=== PATIENT | female | born 1985 | race Caucasian/White ===

== ENCOUNTER 2021-07-04 19:17 | Emergency (ER) | payer OTHER ==
[~2021-07-04] VITALS: Ht 170.2 cm; Wt 73.4 kg
[2021-07-04 19:31] VITALS: BP 125/85
[2021-07-04] MEDS: ONDANSETRON PF 4 MG/2 ML VIAL. IVP ONE (19:45)
[2021-07-04] MEDS: IV NORMAL SALINE 1,000ML 1,000 ML IV ONE ×2 (19:45→22:00)
[2021-07-04] MEDS: MORPHINE SULFATE 4 MG/ML DISP.SYRIN. IV ONE (19:45)
--- NOTE | 2021-07-04 19:52 | PHYS DOC ---
Past History Past Surgical History: , Other Additional Past Surgical Histo: breast surgery, tummy tuck, R knee Alcohol Use: None Adult General Chief Complaint Chief Complaint: ABDOMINAL PAIN HPI HPI Patient is a 35-year-old female presenting to the emergency department for evaluation of abdominal pain and diarrhea and dark urine. Patient says that she has had diarrhea for the past 4 nights straight. She was on a 9-day course of steroids but finished it 2 nights ago. She says she has not been on antibiotics or foreign travel or chemotherapy. The diarrhea is watery but nonbloody. The abdominal pain is diffuse and crampy and radiates to her bilateral flanks. She denies any fevers chills nausea vomiting dysuria hematuria vaginal bleeding or vaginal discharge. She has had multiple abdominal surgeries including C- sections and a tummy tuck. She is in no acute distress with normal vital signs. Review of Systems Review of Systems Constitutional: Denies fever or chills [] Eyes: Denies change in visual acuity, redness, or eye pain [] HENT: Denies nasal congestion or sore throat [] Respiratory: Denies cough or shortness of breath [] Cardiovascular: No additional information not addressed in HPI [] GI: + abdominal pain. No nausea, vomiting, bloody stools. + diarrhea [] : Denies dysuria or hematuria [] Musculoskeletal: + back pain Integument: Denies rash or skin lesions [] Neurologic: Denies headache, focal weakness or sensory changes [] All other systems were reviewed and found to be within normal limits, except as documented in this note. Current Medications Current Medications Current Medications Medications (Trade) Dose Ordered Sig/[facility] Start Time Stop Time Status Last Admin Dose Admin Morphine Sulfate (Morphine 4mg Syringe) 4 mg 1X ONCE 07/04/21 19:45 07/04/21 19:46 UNV Ondansetron HCl (Zofran) 4 mg 1X ONCE 07/04/21 19:45 07/04/21 19:46 UNV Sodium Chloride 1,000 ml @ 1,000 mls/hr 1X ONCE 07/04/21 19:45 07/04/21 20:44 UNV Allergies Allergies Allergies Coded Allergies Type Severity Reaction Last Updated Verified No Known Drug Allergies 07/04/21 No Physical Exam Physical Exam Constitutional: Well developed, well nourished, no acute distress, non-toxic appearance. [] HENT: Normocephalic, atraumatic, bilateral external ears normal, oropharynx moist, no oral exudates, nose normal. [] Eyes: PERRLA, EOMI, conjunctiva normal, no discharge. [] Neck: Normal range of motion, no tenderness, supple, no stridor. [] Cardiovascular:Heart rate regular rhythm, no murmur [] Lungs & Thorax: Bilateral breath sounds clear to auscultation [] Abdomen: Bowel sounds normal, soft, mild diffuse tenderness to palpation in all quadrants but no rebound or guarding Skin: Warm, dry, no erythema, no rash. [] Back: No tenderness, no CVA tenderness. [] Extremities: No tenderness, no cyanosis, no clubbing, ROM intact, no edema. [] Neurologic: Alert and oriented X 3, normal motor function, normal sensory function, no focal deficits noted. [] Current Patient Data Vital Signs Vital Signs Date Time Temp Pulse Resp B/P (MAP) Pulse Ox O2 Delivery O2 Flow Rate FiO2 07/04/21 19:31 98.5 85 16 125/85 (98) 97 EKG EKG [] Radiology/Procedures Radiology/Procedures [] Heart Score C/O Chest Pain: No Risk Factors: Risk Factors: DM, Current or recent (<one month) smoker, HTN, HLP, family history of CAD, obesity. Risk Scores: Risk Factors: DM, Current or recent (<one month) smoker, HTN, HLP, family history of CAD, obesity. Course & Med Decision Making Course & Med Decision Making I will check labs and imaging treat symptoms and reassess. Patient has mild leukocytosis but no definitive etiology of a bacterial infection. She was unable to provide a stool sample in the emergency department but I told her this could be an infectious diarrhea. She has hematuria but no signs of infection in her urine. Her renal function is normal patient was given 2 L of fluid and says that she feels better after treatment here in the emergency department. There is no signs of kidney stone or other acute surgical pathology on her CT scan. Patient says that she feels much better and would like to go home. I told her to continue drinking plenty of fluids and I will prescribe her antibiotics for recommended not filling them unless her symptoms persist more than 1 week from onset. I told her to follow-up with her primary care provider in the next 2 days and come back to emergency department sooner with worsening pain fevers or other general concerns. Patient aware and agreeable with plan and verbalized understanding of the above instructions. Anthony Disclaimer Anthony Disclaimer This electronic medical record was generated, in whole or in part, using a voice recognition dictation system. Departure Departure: Impression: Primary Impression: Abdominal pain Additional Impressions: Diarrhea Hematuria Leukocytosis Disposition: HOME / SELF CARE / HOMELESS Condition: STABLE Referrals: PCP,UNKNOWN (PCP) Patient Instructions: Diarrhea Additional Instructions: Follow with your doctor for your diarrhea abdominal pain and hematuria. Take the antibiotics if your symptoms persist more than 1 week from onset. Come back to emergency department with worsening pain fevers or other concerns. Thank you! Scripts Metronidazole (METRONIDAZOLE) 500 Mg Tablet 1 TAB PO TID for 7 Days, #21 TAB 0 Refills Prov: BIJAL PRESSLEY DO 07/04/21 Ciprofloxacin (CIPRO) 500 Mg/5 Ml Maria E.mc.rec 500 MG PO BID, #14 MISC Prov: BIJAL PRESSLEY DO 07/04/21 Problem Qualifiers Primary Impression: Abdominal pain Abdominal location: generalized Qualified Codes: R10.84 - Generalized ab dominal pain Additional Impressions: Diarrhea Diarrhea type: unspecified type Qualified Codes: R19.7 - Diarrhea, unspecified Hematuria Hematuria type: unspecified type Qualified Codes: R31.9 - Hematuria, unspecified BIJAL PRESSLEY DO July 04, 2021 19:52
--- NOTE | 2021-07-04 20:52 | RAD ---
Exam: CT of abdomen and pelvis without contrast INDICATION: Diffuse abdominal pain, Back pain TECHNIQUE: Sequential axial images through the abdomen and pelvis obtained without IV contrast. Sagit jackelin and coronal reformatted images were reconstructed from the axial data and reviewed. Exposure: One or more of the following in the visualized dose reduction techniques were utilized for this examination: 1. Automated exposure control 2. Adjustment of the MA and/or KV according to patient size 3. Use of iterative of reconstructive technique Comparisons: None FINDINGS: Heart size is normal. No pericardial effusion. Visualized lung bases are clear. No pleural effusion. Evaluation solid organs limited secondary to noncontrast technique. Liver, spleen, pancreas and adrenals are unremarkable. Gallbladder is decompressed. Bladder is partially distended and not well evaluated. Uterus is nonenlarged. IUD noted in the uterus . No abnormal adnexal mass. Moderate amount stool noted in the colon. Appendix is normal. No free intra-abdominal air or fluid. N o obstruction. Abdominal aorta has normal course and caliber. No enlarged intra-abdominal lymph nodes are identified. No suspicious osseous lesions or acute fractures. IMPRESSION: Several nonobstructing right renal calculi. No ureteral calculi or evidence for obstructive uropathy. Electronically signed by: Lynne Goldstein MD (07/04/2021 8:50 PM) [facility]
[2021-07-04 20:54] LABS: BASO % 0 % (0-3); EOS % 0 % (0-3); HEMATOCRIT 36.9 % (36.0-47.0); HEMOGLOBIN 12.2 g/dL (12.0-15.5); LYMPH % 9 % (24-48); MEAN CORPUSCULAR HEMOGLOBIN 29 pg (25-35); MEAN CORPUSCULAR HGB CONC 33 g/dL (31-37); MEAN CORPUSCULAR VOLUME 88 fL (79-100); MONO # 0.6 x10^3/uL (0.0-1.1); MONO % 6 % (0-9); NEUT # 9.5 x10^3uL (1.8-7.7); NEUT % 85 % (31-73); PLATELET COUNT 336 x10^3/uL (140-400); RED BLOOD COUNT 4.18 x10^6/uL (3.50-5.40); RED CELL DISTRIBUTION WIDTH 13.9 % (11.5-14.5); WHITE BLOOD COUNT 11.2 x10^3/uL (4.0-11.0)
[2021-07-04 21:05] LABS: CALCIUM 9.3 mg/dL (8.5-10.1); CREATININE 0.8 mg/dL (0.6-1.0); GFR 81.2; POTASSIUM 4.3 mmol/L (3.5-5.1)
[2021-07-04 21:09] LABS: BACTERIA,URINE 0 /HPF (0-FEW); CLARITY,URINE HAZY; COLOR,URINE YELLOW; GLUCOSE,URINE NEG (NEG); NITRITE,URINE NEG (NEG); RBC,URINE TNTC /HPF (0-2); SQUAMOUS EPITHELIAL CELL,UR FEW /LPF; UROBILINOGEN,URINE 0.2 mg/dL (0.2 mg/dL); WBC,URINE 0 /HPF (0-4)
[2021-07-04 21:11] LABS: ALBUMIN/GLOBULIN RATIO 1.2 (1.0-1.7); TOTAL BILIRUBIN 0.6 mg/dL (0.2-1.0); TOTAL PROTEIN 7.4 g/dL (6.4-8.2)
[2021-07-04] MEDS ORDERED: CIPR500S2 PO (22:17)
[2021-07-04] MEDS ORDERED: METR-34 PO (22:17)
== END 2021-07-04 23:23 | disposition home or self-care (01) ==
LOC: ER 19:17
DX: R19.7 Diarrhea, unspecified (principal); R31.9 Hematuria, unspecified; D72.829 Elevated white blood cell count, unspecified; R10.84 Generalized abdominal pain; Z98.890 Other specified postprocedural states
CPT/HCPCS: 74176; 80053; 81001; 81025; 83690; 85025; 96360; 96361; 99284; J7030